=== PATIENT | female | born 1960 | race Hispanic/Latino ===

== ENCOUNTER → 2018-01-21 | Outpatient (CLI) | payer OTHER ==
--- NOTE | 2018-01-21 10:19 | Diagnostic Imaging Report ---
PROCEDURE:ABDOMINAL ULTRASOUND COMPARISON:None. INDICATIONS:ABDOMINAL PAIN FINDINGS: Liver: 15.8 cm in length in the right midclavicular line. Increased hepatic parenchymal echogenicity. No focal mass. Main portal vein: 0.9 cm in caliber. Hepatopedal flow. Gallbladder: Surgically removed. Common Bile Duct: 0.4 cm in caliber. No echogenic filling defect. Right kidney: 11.9 cm in length. No solid or cystic mass, echogenic calculi, or hydronephrosis. Normal parenchymal echogenicity. Left kidney: 11.8 cm in length. No solid or cystic mass, echogenic calculi, or hydronephrosis. Normal parenchymal echogenicity. Spleen: 9.4 cm in length. Uniform parenchymal echotexture. Pancreas: The visualized portions of the pancreas are normal. Inferior vena cava: Patent. Aorta: Non-aneurysmal. Ascites: None. CONCLUSION: Hepatomegaly with increased parenchymal echogenicity compatible with steatosis. Status post cholecystectomy. Dictated by: Joaquin Ricci M.D. on 01/21/2018 at 10:24 Electronically approved by: Joaquin Ricci M.D. on 01/21/2018 at 10:24
== END ==
LOC: US 09:07
PROVIDERS: ATTEND Internal Medicine
DX: R10.9 Unspecified abdominal pain (principal)
CPT/HCPCS: 76700

== ENCOUNTER → 2018-01-29 | Outpatient (CLI) | payer OTHER ==
--- NOTE | 2018-01-29 15:11 | Diagnostic Imaging Report ---
PROCEDURE: C-SPINE COMPLETE COMPARISON: None. INDICATIONS: PAIN FINDINGS: C1 through C7 are visualized on the lateral view. Straightening of the cervical lordosis may be related muscle spasm or positioning. Re-demonstration of status post anterior fusion of C6-C7 with metallic plate and transfixing screws which are intact and in adequate alignment. There has been good bony fusion at C6-C7. Previous fusion at C5-C6 with a plate removed. Mild to moderate multilevel facet arthrosis with severe at C7-T1. No flexion-extension views were performed. Bilateral obliques demonstrates mild neuroforaminal narrowing in the left C6-C7 and C7-T1. The prevertebral soft tissues are not swollen. CONCLUSION: 1. Status post anterior fusion of C6-C7 with good bony fusion. Intact hardware with adequate alignment. 2. Previous fusion of C5-C6 with plate removal. 3. Mild to moderate multilevel facet arthrosis. 4. Left C6-C7 and C7-T1 neural foraminal narrowing. Dictated by: Juan Francisco Heath M.D. on 01/29/2018 at 15:17 Electronically approved by: Juan Francisco Heath M.D. on 01/29/2018 at 15:17
--- NOTE | 2018-01-29 15:20 | Diagnostic Imaging Report ---
PROCEDURE: L-SPINE 3V COMPARISON: None. INDICATIONS: PAIN FINDINGS: The lumbar spine is in anatomic alignment without evidence of fracture, spondylolisthesis, or spondylolysis. The vertebral body heights are preserved. Mild multilevel disc space narrowing with severe displacement of L4-5 and mild at L5-S1. Moderate multilevel facet arthrosis with severe at L5-S1. The paraspinal soft tissues are normal. CONCLUSION: Moderate degenerative changes in the lumbar spine centered at L4-L5. Dictated by: Juan Francisco Heath M.D. on 01/29/2018 at 15:25 Electronically approved by: Juan Francisco Heath M.D. on 01/29/2018 at 15:25
--- NOTE | 2018-01-29 15:25 | Diagnostic Imaging Report ---
PROCEDURE:SACRUM X-RAY TECHNIQUE:2 views of the sacrum INDICATION:Sacral pain. COMPARISON:None. FINDINGS: Severe degenerative changes at L4-5. Mild to moderate degenerative changes at L5-S1. Mild bilateral SI joint sclerosis. CONCLUSION: Mild degenerative changes in bilateral SI joints. Dictated by: Juan Francisco Heath M.D. on 01/29/2018 at 15:29 Electronically approved by: Juan Francisco Heath M.D. on 01/29/2018 at 15:29
== END ==
LOC: RAD 14:06
PROVIDERS: ATTEND Internal Medicine
DX: M43.07 Spondylolysis, lumbosacral region (principal); M54.2 Cervicalgia
CPT/HCPCS: 72050; 72100; 72220

== ENCOUNTER 2021-02-04 07:49 | Emergency (ER) | payer OTHER ==
[~2021-02-04] VITALS: Ht 152.4 cm; Wt 68.0 kg
[2021-02-04 08:48] LABS: BASOPHILS # (AUTO) 0.1 (0.0-0.1); BASOPHILS % 0.7 % (0.0-1.0); EOSINOPHILS # (AUTO) 0.2 (0.0-0.4); EOSINOPHILS % 2.9 % (0.0-6.0); HEMOGLOBIN 11.4 g/dL (12.0-16.0); LYMPHOCYTES # (AUTO) 2.1 (1.0-3.2); LYMPHOCYTES % 27.2 % (18.0-39.1); MEAN CORPUSCULAR HEMOGLOBIN 28.6 pg (28-32); MEAN CORPUSCULAR HGB CONC 31.7 g/dL (31-35); MEAN CORPUSCULAR VOLUME 90.5 fL (81-99); MONOCYTES # (AUTO) 0.7 (0.2-0.8); MONOCYTES % 9.7 % (4.4-11.3); NEUTROPHILS # (AUTO) 4.5 (2.1-6.9); PLATELET COUNT 317 x10e3/uL (140-360); RED BLOOD COUNT 3.98 x10e6/uL (3.6-5.1); RED CELL DISTRIBUTION WIDTH 14.7 % (11.7-14.4)
[2021-02-04 08:53] LABS: CLARITY,URINE CLEAR (CLEAR); COLOR,URINE YELLOW (YELLOW); LEUKOCYTE ESTERASE ,URINE NEGATIVE (NEGATIVE); NITRITE,URINE NEGATIVE (NEGATIVE)
[2021-02-04 08:54] LABS: KETONES,URINE 2+ (NEGATIVE); PROTEIN,URINE DIPSTICK NEGATIVE (NEGATIVE); URINE UROBILINOGEN 0.2 mg/dL (0.2 - 1)
[2021-02-04 08:59] LABS: BACTERIA,URINE RARE /HPF; EPITHELIAL CELLS,URINE FEW /LPF; RBC,URINE 0-5 /HPF (0-5); WBC,URINE (MAN) 0-5 /HPF (0-5)
[2021-02-04 09:04] LABS: ALBUMIN 3.5 g/dL (3.5-5.0); ALBUMIN/GLOBULIN RATIO 0.9 (0.8-2.0); ANION GAP 14.5 mmol/L (8-16); CALCIUM 8.9 mg/dL (8.4-10.2); CREATININE, SERUM 0.67 mg/dL (0.57-1.11); MAGNESIUM 1.8 MG/DL (1.3-2.1); POTASSIUM 3.5 mmol/L (3.5-5.1)
[2021-02-04 09:11] LABS: CREATINE KINASE MB 2.7 ng/mL (0-5.0)
== END 2021-02-04 11:03 | disposition home or self-care (01) ==
LOC: ER 08:23
DX: M54.12 Radiculopathy, cervical region (principal); I10 Essential (primary) hypertension; R51.9 Headache, unspecified; E11.9 Type 2 diabetes mellitus without complications; D64.9 Anemia, unspecified; K21.9 Gastro-esophageal reflux disease without esophagitis; E78.5 Hyperlipidemia, unspecified; Z88.6 Allergy status to analgesic agent
CPT/HCPCS: 36415; 70450; 71045; 72125; 80053; 81001; 82550; 82553; 83735; 83880; 84484; 85025; 93005; 99284

== ENCOUNTER → 2022-07-30 | Outpatient (CLI) | payer BC ==
[~2022-07-30] MED LIST: METHOCARBAMOL500 MG PO
== END ==
LOC: RAD 13:15
PROVIDERS: ATTEND Internal Medicine
DX: S13.9XXA Sprain of joints and ligaments of unspecified parts of neck, initial encounter (principal); S79.912A Unspecified injury of left hip, initial encounter; S79.911A Unspecified injury of right hip, initial encounter; Z91.81 History of falling
CPT/HCPCS: 73521

== ENCOUNTER → 2022-08-03 | Outpatient (CLI) | payer BC | LOC: CT 11:03 | PROVIDERS: ATTEND Internal Medicine | DX: S13.8XXA Sprain of joints and ligaments of other parts of neck, initial encounter (principal); S79.912A Unspecified injury of left hip, initial encounter; S79.911A Unspecified injury of right hip, initial encounter; W18.39XA Other fall on same level, initial encounter | CPT/HCPCS: 70450; 72125; 73522 ==

== ENCOUNTER 2022-11-26 13:45 | Emergency (ER) | payer BC ==
[~2022-11-26] VITALS: Ht 157.5 cm; Wt 78.5 kg
[2022-11-26 14:00] VITALS: O2SAT 100
[2022-11-26 14:50] LABS: BASOPHILS # (AUTO) 0.1 (0.0-0.1); BASOPHILS % 0.7 % (0.0-1.0); EOSINOPHILS # (AUTO) 0.2 (0.0-0.4); EOSINOPHILS % 1.1 % (0.0-6.0); HEMATOCRIT 36.1 % (34.2-44.1); LYMPHOCYTES # (AUTO) 2.3 (1.0-3.2); LYMPHOCYTES % 16.7 % (18.0-39.1); MEAN CORPUSCULAR HEMOGLOBIN 28.5 pg (28-32); MEAN CORPUSCULAR HGB CONC 30.5 g/dL (31-35); MEAN CORPUSCULAR VOLUME 93.5 fL (81-99); MONOCYTES # (AUTO) 0.9 (0.2-0.8); MONOCYTES % 6.1 % (4.4-11.3); NEUTROPHILS # (AUTO) 10.4 (2.1-6.9); NEUTROPHILS % 74.5 % (38.7-80.0); PLATELET COUNT 292 x10e3/uL (140-360); RED BLOOD COUNT 3.86 x10e6/uL (3.6-5.1); RED CELL DISTRIBUTION WIDTH 15.3 % (11.7-14.4)
[2022-11-26 14:53] LABS: CLARITY,URINE SL CLOUDY (CLEAR); COLOR,URINE YELLOW (YELLOW); KETONES,URINE NEGATIVE (NEGATIVE); LEUKOCYTE ESTERASE ,URINE TRACE (NEGATIVE); NITRITE,URINE NEGATIVE (NEGATIVE); PROTEIN,URINE DIPSTICK NEGATIVE (NEGATIVE); URINE UROBILINOGEN 0.2 mg/dL (0.2 - 1)
[2022-11-26 15:04] LABS: BACTERIA,URINE MODERATE /HPF; EPITHELIAL CELLS,URINE FEW /LPF; RENAL EPITHELIAL CELLS,URINE FEW
[2022-11-26 15:10] LABS: ALBUMIN 3.4 g/dL (3.5-5.0); ALBUMIN/GLOBULIN RATIO 0.9 (0.8-2.0); ANION GAP 13.6 mmol/L (8-16); CALCIUM 9.1 mg/dL (8.4-10.2); CREATININE, SERUM 1.27 mg/dL (0.57-1.11); POTASSIUM 3.6 mmol/L (3.5-5.1)
[2022-11-26] MEDS ORDERED: CEFDINIR300 MG PO (16:34)
== END 2022-11-26 16:50 | disposition home or self-care (01) ==
LOC: ER 13:58
DX: M54.2 Cervicalgia (principal); R20.2 Paresthesia of skin; R07.89 Other chest pain; N39.0 Urinary tract infection, site not specified; E11.65 Type 2 diabetes mellitus with hyperglycemia; I10 Essential (primary) hypertension; R94.31 Abnormal electrocardiogram [ECG] [EKG]
CPT/HCPCS: 36415; 71046; 72050; 80053; 81001; 84484; 85025; 93005; 99284

== ENCOUNTER 2022-11-28 09:18 | Emergency (ER) | payer BC ==
[~2022-11-28] VITALS: Ht 157.5 cm; Wt 78.5 kg
[~2022-11-28 09:18] MED LIST changes: +CEFDINIR300 MG PO
[2022-11-28 09:55] VITALS: O2SAT 100
[2022-11-28] MEDS ORDERED: METHOCARBAMOL500 MG PO (10:20)
== END 2022-11-28 10:22 | disposition home or self-care (01) ==
LOC: ER 09:31
DX: M62.838 Other muscle spasm (principal); M54.2 Cervicalgia; R51.9 Headache, unspecified; I10 Essential (primary) hypertension; E11.9 Type 2 diabetes mellitus without complications; E78.5 Hyperlipidemia, unspecified; K21.9 Gastro-esophageal reflux disease without esophagitis; D64.9 Anemia, unspecified
CPT/HCPCS: 99282

== ENCOUNTER 2023-05-20 12:05 | Emergency (ER) | payer BC ==
[~2023-05-20] VITALS: Ht 157.5 cm; Wt 78.5 kg
[2023-05-20 12:30] VITALS: O2SAT 98
[2023-05-20 13:22] LABS: BASOPHILS # (AUTO) 0.1 (0.0-0.1); BASOPHILS % 0.4 % (0.0-1.0); EOSINOPHILS # (AUTO) 0.2 (0.0-0.4); EOSINOPHILS % 1.4 % (0.0-6.0); HEMATOCRIT 33.4 % (34.2-44.1); HEMOGLOBIN 10.7 g/dL (12.0-16.0); LYMPHOCYTES # (AUTO) 1.2 (1.0-3.2); LYMPHOCYTES % 7.8 % (18.0-39.1); MEAN CORPUSCULAR HEMOGLOBIN 29.2 pg (28-32); MONOCYTES # (AUTO) 0.8 (0.2-0.8); MONOCYTES % 5.1 % (4.4-11.3); NEUTROPHILS # (AUTO) 12.9 (2.1-6.9); NEUTROPHILS % 83.9 % (38.7-80.0); PLATELET COUNT 266 x10e3/uL (140-360); RED BLOOD COUNT 3.67 x10e6/uL (3.6-5.1); RED CELL DISTRIBUTION WIDTH 14.8 % (11.7-14.4); WHITE BLOOD COUNT 15.37 x10e3/uL (4.8-10.8)
[2023-05-20 13:38] LABS: ALBUMIN 3.3 g/dL (3.5-5.0); ALBUMIN/GLOBULIN RATIO 0.9 (0.8-2.0); ANION GAP 16.2 mmol/L (8-16); CALCIUM 9.2 mg/dL (8.4-10.2); CREATININE, SERUM 1.51 mg/dL (0.57-1.11); POTASSIUM 4.2 mmol/L (3.5-5.1)
== END 2023-05-20 15:00 | disposition home or self-care (01) ==
LOC: ER 12:20
DX: D64.9 Anemia, unspecified (principal); I12.9 Hypertensive chronic kidney disease with stage 1 through stage 4 chronic kidney disease, or unspecified chronic kidney disease; E11.22 Type 2 diabetes mellitus with diabetic chronic kidney disease; E11.65 Type 2 diabetes mellitus with hyperglycemia; N18.9 Chronic kidney disease, unspecified; M79.672 Pain in left foot; M79.671 Pain in right foot; M54.9 Dorsalgia, unspecified; E78.5 Hyperlipidemia, unspecified; K21.9 Gastro-esophageal reflux disease without esophagitis
CPT/HCPCS: 36415; 80053; 85025; 99283